=== PATIENT | male | born 1980 | race Caucasian/White ===

== ENCOUNTER 2017-07-24 15:12 | Emergency (ER) | payer OTHER ==
[~2017-07-24] VITALS: Ht 177.8 cm; Wt 70.2 kg
[2017-07-24 15:16] VITALS: TEMP 37.3; Ht 177.8 cm; Wt 70.2 kg
[2017-07-24] MEDS ORDERED: SULF800T23 PO (16:03)
[2017-07-24] MEDS ORDERED: CEPH500C PO (16:03)
--- NOTE | 2017-07-24 16:06 | EMERGENCY ROOM VISIT NOTE ---
ED Visit Note First contact with patient: 15:24 CHIEF COMPLAINT: Infection of the left upper arm HISTORY OF PRESENT ILLNESS: This 37-year-old male patient presents to the emergency department, ambulatory, with his girlfriend and friend, complaining of redness, pain, and streaking in the patient left arm. The patient's girlfriend states they were camping recently and noticed several spiders in the area. The patient did not immediately notice any sort of bite, however he suspects that he did receive a spider bite. The patient's girlfriend noticed a red vasu in the center of his upper back yesterday. He states today they noticed there is some red streaking in the anterior aspect of the left arm into the left armpit. They're also complaining of bruising and swelling of the upper back. The left upper arm and left side of the upper back are warm and very tender to palpation. The patient denies fever, chills, nausea, or loss of appetite. Movement of the left upper arm is mildly decreased because of the pain. The patient's tetanus shot is up to date. REVIEW OF SYSTEMS: A 10 system review of systems was performed with positives and pertinent negatives listed in the history of present illness. All other systems were reviewed and are negative. ALLERGIES: None MEDICATIONS: None PMH: None SOCIAL HISTORY: The patient lives locally with his girlfriend. He admits to smoking one pack of cigarettes per day. The patient admits to occasional alcohol use, but denies drug use. PHYSICAL EXAM: Vital Signs: Reviewed Nurse's notes, Temperature 37.3C, vital signs stable. GENERAL: This is a 37-year-old white male, in no acute distress, is non toxic in appearance, well-developed, well-nourished. SKIN: The middle of the upper back has a lesion approximately the size of a nickel which is red, warm, very tender, and swollen. There is no lymphangitic streaking. There is no discharge. There is no fluctuance. There is no induration. There is a red streak on the anterior aspect of the left upper arm. This does radiate from approximately the elbow to the axillary area. There is a swollen axillary lymph node in the left axilla. There is no obvious abscess. There is no obvious streaking from the lesion on the back into the axilla. There is no obvious bite or lesion on the left arm. HEART: Regular rate and rhythm without murmur, gallop, or rub. LUNGS: Clear to auscultation bilaterally without wheezes , rales, or rhonchi. NEURO: Alert and oriented to person, place, and time. Normal sensation to light and sharp touch. Capillary reflex less than 2 seconds. Peripheral pulses 2 + bilaterally. RADIOLOGY: US Soft Tissue LUE: L EXTREMITY NONVASCULAR LIMITED CLINICAL HISTORY: 37 years-old Male presenting with LUE streaking, redness - axillary lymph and lesion on back, spider bite. TECHNIQUE: Real-time grayscale ultrasound imaging of the left upper extremity was performed for a focused examination at the site of clinical interest. Color Doppler was also performed. COMPARISON: None. FINDINGS: At the site of clinical concern, mild dilation of lymphatics may be present, consistent with subcutaneous edema. No focal collection. No hyperemia on color Doppler. IMPRESSION: 1. Mild subcutaneous edema. No focal collection. Electronically signed by: Lee Mccollum M.D. 07/24/2017 5:02 PM Dictated Date/Time: 07/24/2017 5:01 PM US Venous Doppler LUE: L VENOUS DOPPLER UPR EXT UNIL HISTORY: Pain. Edema. LUE redness COMPARISON STUDY: None. FINDINGS: The internal jugular vein is patent. There is normal flow within the subclavian vein. There is normal flow and compressibility within the left axillary, basilic, brachial, radial, ulnar, and visualized cephalic veins. IMPRESSION: No DVT within the upper extremity. The above report was generated using voice recognition software. It may contain grammatical, syntax or spelling errors. Electronically signed by: Vasu Parnell M.D. 07/24/2017 5:01 PM Dictated Date/Time: 07/24/2017 5:00 PM EMERGENCY DEPARTMENT COURSE: I examined the patient. I did discuss with him that I highly recommend ultrasounds to rule out abscess, lymphangitis, lymphoma , and DVT. The patient initially states that he is unable to stay and wait for the ultrasound, as his ride has to leave to run an errand for approximately an hour. The patient was going to sign out AMA, then returned later to have the studies completed, then realized his friend was able to return to pick him up. The studies were completed and read as negative. I do feel that the patient is experiencing a cellulitis, however it is unknown for sure if this is a spider bite or other cause of the cellulitis. There is no obvious palpable mass or abscess on examination. I did encourage antibiotics and close follow-up with PCP. The patient was discharged home in good condition. I attest that I have personally reviewed the patient's current medication list. Patient was found to have normal blood pressure on screening and does not require follow-up. DIFFERENTIAL DIAGNOSIS: Cellulitis, lymphangitis, DVT, lymphoma, insect bite, abscess, malignancy, and others DIAGNOSIS: Cellulitis of the back, left upper arm DISCHARGE INSTRUCTIONS: You were seen in the ED today c/o a possible Brown Recluse spider bite. Ultrasound results did show some mild swelling, but no infection or blood clot. You were prescribed Keflex and Bactrim to be taken as directed. This is an antibiotic. All antibiotics have the potential to cause diarrhea. Stop this medication and contact a medical provider if you were to develop any significant adverse side effects including: wheezing, shortness of breath, passing out, vomiting, or a diffuse rash. Always take antibiotics as directed and COMPLETE the ENTIRE course regardless of the improvement of your symptoms. Please keep the area clean and dry. Please wash it with soap and water. Please apply a antibiotic ointment such as bacitracin or triple antibiotic to the wound. These keep it clean and dry with soap and water. Return to the emergency department for any worsening redness, pain, obvious abscess, fevers, chills, nausea, vomiting, body aches, or other associated symptoms. Follow-up with your PCP in one to 2 days for recheck of the wound and redness. Current/Historical Medications Scheduled Cephalexin Monohydrate (Keflex), 500 MG PO QID Sulfa/Trimethoprim (Bactrim Ds 800MG/160MG), 1 TAB PO BID Allergies Coded Allergies: No Known Allergies (Unverified , 07/24/17) Vital Signs Date Time Temp Pulse Resp B/P (MAP) Pulse Ox O2 Delivery O2 Flow Rate FiO2 07/24/17 17:08 98 17 156/83 96 Room Air 07/24/17 15:16 37.3 105 18 161/86 97 Room Air Departure Information Impression Primary Impression: Lymphadenopathy Additional Impression: Bite from insect Dispostion Home / Self-Care Condition GOOD Prescriptions Cephalexin Monohydrate (Keflex) 500 Mg Cap 500 MG PO QID for 10 Days, #40 CAP Prov: Marley Puente PA-C 07/24/17 Sulfa/Trimethoprim (Bactrim Ds 800MG/160MG) Tab 1 TAB PO BID for 10 Days, #20 TAB Prov: Marley Puente PA-C 07/24/17 Referrals No Doctor, Assigned (PCP) Patient Instructions ED Bite Insect Brown Recluse Spider, My [facility] Additional Instructions You were seen in the ED today c/o a possible Brown Recluse spider bite. Ultrasound results did show some mild swelling, but no infection or blood clot. You were prescribed Keflex and Bactrim to be taken as directed. This is an antibiotic. All antibiotics have the potential to cause diarrhea. Stop this medication and contact a medical provider if you were to develop any significant adverse side effects including: wheezing, shortness of breath, passing out, vomiting, or a diffuse rash. Always take antibiotics as directed and COMPLETE the ENTIRE course regardless of the improvement of your symptoms. Please keep the area clean and dry. Please wash it with soap and water. Please apply a antibiotic ointment such as bacitracin or triple antibiotic to the wound. These keep it clean and dry with soap and water. Return to the emergency department for any worsening redness, pain, obvious abscess, fevers, chills, nausea, vomiting, body aches, or other associated symptoms. Follow-up with your PCP in one to 2 days for recheck of the wound and redness. Problem Qualifiers Additional Impression: Bite from insect Encounter type: initial encounter Qualified Codes: W57.XXXA - Bitten or stung by nonvenomous insect and other nonvenomous arthropods, initial encounter
--- NOTE | 2017-07-24 17:02 | DIAGNOSTIC IMAGING REPORT ---
L VENOUS DOPPLER UPR EXT UNIL HISTORY: Pain. Edema. LUE redness COMPARISON STUDY: None. FINDINGS: The internal jugular vein is patent. There is normal flow within the subclavian vein. There is normal flow and compressibility within the left axillary, basilic, brachial, radial, ulnar, and visualized cephalic veins. IMPRESSION: No DVT within the upper extremity. The above report was generated using voice recognition software. It may contain grammatical, syntax or spelling errors. Electronically signed by: Vasu Parnell M.D. 07/24/2017 5:01 PM Dictated Date/Time: 07/24/2017 5:00 PM
--- NOTE | 2017-07-24 17:03 | DIAGNOSTIC IMAGING REPORT ---
L EXTREMITY NONVASCULAR LIMITED CLINICAL HISTORY: 37 years-old Male presenting with LUE streaking, redness - axillary lymph and lesion on back, spider bite. TECHNIQUE: Real-time grayscale ultrasound imaging of the left upper extremity was performed for a focused examination at the site of clinical interest. Color Doppler was also performed. COMPARISON: None. FINDINGS: At the site of clinical concern, mild dilation of lymphatics may be present, consistent with subcutaneous edema. No focal collection. No hyperemia on color Doppler. IMPRESSION: 1. Mild subcutaneous edema. No focal collection. Electronically signed by: Lee Mccollum M.D. 07/24/2017 5:02 PM Dictated Date/Time: 07/24/2017 5:01 PM
[2017-07-24 17:08] VITALS: BP 156/83; PULSE 98; O2SAT 96
== END 2017-07-24 17:21 | disposition home or self-care (01) ==
LOC: C.EDB 15:14 → C.EDD 17:21
DX: R59.1 Generalized enlarged lymph nodes (principal); S40.869A Insect bite (nonvenomous) of unspecified upper arm, initial encounter; W57.XXXA Bitten or stung by nonvenomous insect and other nonvenomous arthropods, initial encounter; Y92.9 Unspecified place or not applicable; F17.210 Nicotine dependence, cigarettes, uncomplicated